=== PATIENT | male | born 1955 | race Caucasian/White ===

== ENCOUNTER 2022-10-13 14:31 | Outpatient (CLI) | payer MEDICARE, OTHER, SELFPAY | END 2022-10-13 14:32 | disposition home or self-care (01) | LOC: AMB 11-04 18:13 | PROVIDERS: Visit Provider Family Medicine | DX: F31.9 Bipolar disorder, unspecified (principal) | CPT/HCPCS: A0425; A0429 ==

== ENCOUNTER 2022-10-13 15:14 | Emergency (ER) | payer MEDICARE, OTHER, SELFPAY ==
[2022-10-13] VITALS (20 sets, daily range): BP systolic 134–168; BP diastolic 61–102; PULSE 76–84; RESP 16; TEMP 37; O2SAT 93–99; BMI 25.1
[2022-10-13 15:52] LABS: Lactate* 1.6 mmol/L (0.5-1.9)
[2022-10-13] MEDS: 0.9 % SODIUM CHLORIDE 1000 ml 1,000 ML IV (16:00)
[2022-10-13 16:12] LABS: Basophils Absolute Auto 0.01 K/uL (0.00-0.30); Basophils Percent Auto 0.1 % (0.0-3.0); Hematocrit 46.1 % (37.0-53.0); Hemoglobin* 15.8 gm/dL (13.5-17.5); Immature Granulocytes Abs Auto 0.01 K/uL (0.00-0.30); Immature Granulocytes Pct Auto 0.1 %; Lymphocytes Percent Auto 11.9 % (20-44); Mean Corpuscular HGB Conc 34 gm/dL (32-36); Mean Corpuscular Hemoglobin 29 pg (26-34); Mean Corpuscular Volume 85 fL (80-100); Monocytes Percent Auto 9.8 % (0.0-11.0); Neutrophils Percent Auto 78.1 % (42.0-72.0); Platelet Count* 218 K/uL (140-440); RDW Coefficient of Variation % 12.5 % (11.5-15.5); Red Blood Count 5.44 m/uL (4.30-5.90); Slide Review Reflex No
[2022-10-13 16:15] LABS: Chloride* 104 mmol/L (96-114); Sodium* 135 mmol/L (135-149)
[2022-10-13 16:16] LABS: INR 1.07 (0.91-1.10); Potassium* 3.6 mmol/L (3.6-5.1); Prothrombin Time 14.5 Seconds
[2022-10-13 16:18] LABS: Creatinine* 0.9 mg/dL (0.5-1.5); Est. Creatinine Clearance* 73.65; Estimated Glomerular Filt Rate 95 ml/min
[2022-10-13 16:19] LABS: Blood Urea Nitrogen* 21 mg/dL (7-30); Calcium* 9.2 mg/dL (8.4-10.6); Carbon Dioxide* 23 mmol/L (20-32); Glucose* 97 mg/dL (60-115)
[2022-10-13 16:25] LABS: Acetaminophen* < 10.0 ug/mL (10.0-30.0); C Reactive Protein* < 0.5 mg/dL (0.5-1.0); Ethanol* < 0.01 % (0.01-0.03)
[2022-10-13 16:37] LABS: Erythrocyte SedimentationRate* 3 mm/hr (2-15)
[2022-10-13 16:42] LABS: Appearance Urine Clear (Clear); Bilirubin Urine Negative (Negative); Blood Urine Negative (Negative); Color Urine Yellow (Yellow); Glucose Urine Negative (Negative); Ketones Urine 2+ (Negative); Leukocyte Esterase Urine Negative (Negative); Nitrite Urine Negative (Negative); Protein Urine Negative (Negative); Specific Gravity Urine 1.015 (1.000-1.030); Urobilinogen Urine 0.2 (0.2-1.0)
[2022-10-13 16:49] LABS: Amphetamine Screen Urine Negative (Negative); Barbiturate Screen Urine Negative (Negative); Benzodiazepines Screen Urine Negative (Negative); Cannabinoid Screen Urine Negative (Negative); Cocaine Screen Urine Negative (Negative); Methadone Screen Urine Negative (Negative); Methamphetamines Screen Urine Negative (Negative); Opiate Screen Urine Negative (Negative); Oxycodone Screen Urine Negative (Negative); Phencyclidine Screen Urine Negative (Negative); Tricyclic Antidepressant Urine Negative (Negative)
[2022-10-13 16:50] LABS: Thyroid Stimulating Hormone* 0.914 uIU/mL (0.270-4.20)
[2022-10-13 16:50] LABS: RBC Urine 0-2 (0-2); WBC Urine 0-2 (0-5)
--- NOTE | 2022-10-13 16:50 | ED.NURSE ---
Pt's requesting MD contact her with an update. Phone number provided to MD Gomez to call pt's .
--- NOTE | 2022-10-13 16:50 | ED.NURSE ---
Pt resting calmly in bed. Pt is verbally redirectable and has been cooperative with testing and process. Pt is still rambling about strange topics, making comments like I'm going to see Enrique Tran in 40 days, you'll see. And [facility] [employer]. 40 days, You're wearing black, so you must be a non-believer. I was a non-believer until today, etc. Pt is repetitive in his bizarre statements. Pt did stand at the bedside twice to void into urinal, voided a total of ~800mLs.
--- NOTE | 2022-10-13 16:55 | CRLHL7_ITS ---
For Patients: As a result of the Century Cures Act, medical imaging exams and procedure reports are released immediately into your electronic medical record. You may view this report before your referring provider. If you have questions, please contact your health care provider. INDICATION: Severe headaches. TECHNIQUE: CT of the head without contrast. Coronal and sagittal reformats are included. COMPARISON: None. FINDINGS: No CT evidence of acute cortical infarct. No loss of yang white matter differentiation. No hyperdense vessels to suggest intracranial thrombus. No acute intracranial hemorrhage. No mass effect or midline shift. No hydrocephalus or extra-axial collections. White matter is within normal limits for age. Intracranial vascular calcifications. No acute osseous abnormalities. Mild polypoid mucosal thickening left maxillary sinus. Paranasal sinuses and mastoid air cells otherwise clear. Normal soft tissues. IMPRESSION: IMPRESSION:1. No CT evidence of acute cortical infarct. No acute intracranial hemorrhage. No other acute intracranial findings. Please note that all CT scans at this facility use dose modulation, iterative reconstruction, and/or weight-based dosing when appropriate to reduce radiation dose to as low as reasonably achievable. Dictated by Darinel Arreguin MD @ 10/13/2022 5:52:44 PM (Electronically Signed)
[2022-10-13 17:13] LABS: Alanine Aminotransferase* 24 U/L (4-50); Albumin* 4.1 g/dL (3.3-5.0); Alkaline Phosphatase* 68 U/L (40-150); Aspartate Amino Transferase* 44 U/L (12-35); Bilirubin Direct* 0.2 mg/dL (0.0-0.5); Bilirubin Total* 3.5 mg/dL (0.1-1.5); Lipase* 64 U/L (23-300); Salicylate* < 1.0 mg/dL (1.0-10); Total Protein* 7.2 g/dL (6.0-8.3)
[2022-10-13 17:19] LABS: SARS PCR* Negative SARS-CoV-2 (Negative)
[2022-10-13 17:25] LABS: Troponin I* 0.02 ng/mL (0.01-0.04)
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
--- NOTE | 2022-10-13 17:55 | ED.NURSE ---
Pt provided with meal tray.
--- NOTE | 2022-10-13 18:05 | ED.NURSE ---
DEC assessment started.
[2022-10-13] MEDS: OLANZapine 5 MG/ML inj IVP (19:01)
--- NOTE | 2022-10-13 19:25 | ED.NURSE ---
Pt c/o muscle cramps and requesting that MD check his magnesium level. Pt also states, If you don't want to check it, just give me some magnesium citrate and vinegar and that'll do it. MD notified, MD ordered magnesium level add on.
[2022-10-13 19:58] LABS: Magnesium* 1.9 mg/dL (1.5-2.6)
[2022-10-13] MEDS: OLANZapine 5 MG/ML inj 10 MG IVP (21:05)
--- NOTE | 2022-10-13 21:17 | ED.NURSE ---
pt eating provided sandwich and watching TV.
--- NOTE | 2022-10-14 05:00 | ED.NURSE ---
pt ambulated to restroom.
--- NOTE | 2022-10-14 06:30 | ED.NURSE ---
called, informed of pt being tranported to [facility]. Wifes flight starts around 713, hope to arrive in [place] around 30? 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
[2022-10-14 08:31] VITALS: BP 147/90; PULSE 64; RESP 18; TEMP 36.9; O2SAT 98
--- NOTE | 2022-10-14 08:32 | ED.NURSE ---
pt eating breakfast. resistant to going to [facility], but agreeable. transferred to [facility] via BLS
== END 2022-10-14 08:35 ==
PROVIDERS: Emergency Provider Family Medicine
DX: R41.82 Altered mental status, unspecified (principal)
CPT/HCPCS: 36415; 70450; 80048; 80076; 80143; 80179; 80306; 81001; 82077; 83605; 83690; 83735; 84443; 84484; 85025; 85610; 85651; 86140; 87086; 87635; 93005; 94761; 96372; 96374; 96376; 99285; J7030; S0166

== ENCOUNTER 2022-10-14 08:18 | Outpatient (CLI) | payer MEDICARE, OTHER, SELFPAY | END 2022-10-14 08:19 | disposition home or self-care (01) | LOC: AMB 11-04 18:35 | PROVIDERS: Visit Provider Family Medicine | DX: F29 Unspecified psychosis not due to a substance or known physiological condition (principal) | CPT/HCPCS: A0425; A0428 ==